=== PATIENT | female | born 2000 | race Caucasian/White ===

== ENCOUNTER → 2024-04-28 08:30 | Outpatient (REF) | payer OTHER, SELFPAY ==
--- NOTE | 2024-04-28 08:41 | ECG_ITS ---
Test Reason : ROUTINE Blood Pressure : */* mmHG Vent. Rate : 54 BPM Atrial Rate : 54 BPM P-R Int : 192 ms QRS Dur : 94 ms QT Int : 452 ms P-R-T Axes : -16 67 42 degrees QTcB Int : 428 ms Sinus bradycardia Otherwise normal ECG No previous ECGs available Referred By: Ailyn Jackson Electronically Signed By: RICHARD BABB MD
[2024-04-28 09:01] LABS: MANUAL DIFF FLAG NO
[2024-04-28 09:40] LABS: Basophils Absolute Auto 0.1 X10*3/uL (0.0-0.2); Basophils Percent Auto 0.8 % (0-2); Eosinophils Absolute Auto 0.1 X10*3/uL (0.0-0.4); Eosinophils Percent Auto 1.5 % (0-4); Hemoglobin 13.6 g/dl (12.0-16.0); Imm Gran Abs Auto 0.02 X10*3/uL (0.00-0.03); Imm Gran Pct Auto 0.3 % (0.0-0.4); Lymphocytes Absolute Auto 1.8 X10*3/uL (1.2-4.9); Lymphocytes Percent Auto 27.8 % (20-40); Mean Corpuscular Hemoglobin 25.9 pg (27.0-33.0); Mean Corpuscular Volume 76.2 fL (80.0-98.0); Mean Platelet Volume 10.3 fL (9.4-12.3); Monocytes Absolute Auto 0.5 X10*3/uL (0.1-1.2); Monocytes Percent Auto 7.7 % (2-11); Neutrophils Percent Auto 61.9 % (45-73); Platelet Count 483 X10*3/uL (160-400); Red Blood Count 5.25 X10*6/uL (4.20-5.50); Red Cell Distribution Width 12.4 % (11.0-16.0); White Blood Count 6.5 X10*3/uL (4.8-10.8)
[2024-04-28 10:07] LABS: Estimated Average Glucose 105 mg/dL; Hemoglobin A1C 118.4929 umol/L; Hemoglobin A1c % 5.3 % (<6.0); Total Hemoglobin (HGBA1C) 3488.5384 umol/L
[2024-04-28 10:13] LABS: Alanine Aminotransferase 16 U/L (0-31); Albumin Level 4.4 g/dL (3.5-5.0); Alkaline Phosphatase 68 U/L (39-117); Anion Gap 11 (12-20); Aspartate Amino Transferase 20 U/L (5-31); Bilirubin Total 0.7 mg/dL (0.0-1.0); Blood Urea Nitrogen 5 mg/dL (9-16); Calcium 9.6 mg/dL (8.4-10.2); Carbon Dioxide 28 mmol/L (22-29); Chloride 104 mmol/L (96-108); Cholesterol 151 mg/dL (<200); Estimated Glomerular Filt Rate > 60; Glucose Fasting 87 mg/dL (60-99); HDL Cholesterol 53 mg/dL (>40); Iron 88 mcg/dL (30-160); LDL Cholesterol Calculated 81 mg/dL (<100); Magnesium 2.2 mg/dL (1.6-2.6); Percent Iron Saturation 30 % (15-50); Potassium 3.8 mmol/L (3.3-5.1); Sodium 139 mmol/L (135-145); Total Iron Binding Capacity 295 mcg/dL (228-428); Total Protein 7.7 g/dL (6.5-8.0); Triglycerides 87 mg/dL (<150); Unsaturated Iron Binding 207 ug/dL
[2024-04-28 10:24] LABS: Free T4 (Free Thyroxine) 1.17 ng/dL (0.71-1.85); HCG Quantitative < 2 mIU/mL; Thyroid Stimulating Hormone 1.05 uIU/mL (0.32-4.0)
[2024-04-28 10:25] LABS: Erythrocyte Sedimentation Rate 4 MM/HR (0-20)
[2024-04-28 10:36] LABS: Folate 4.2 ng/mL (> or = 4.0); Vitamin B12 488 pg/mL (200-900)
== END ==
LOC: HO.CARD 08:30
PROVIDERS: Visit Provider Psychiatry & Neurology Psychiatry
DX: Z13.1 Encounter for screening for diabetes mellitus (principal); Z13.6 Encounter for screening for cardiovascular disorders; F39 Unspecified mood [affective] disorder
CPT/HCPCS: 36415; 80053; 80061; 82306; 82607; 82746; 83036; 83540; 83735; 84439; 84443; 84702; 85025; 85652; 93005

== ENCOUNTER → 2024-04-28 08:41 | Outpatient (BNV) | payer OTHER, SELFPAY | PROVIDERS: Visit Provider Internal Medicine Cardiovascular Disease | DX: R00.1 Bradycardia, unspecified (principal) | CPT/HCPCS: 93010 ==

== ENCOUNTER → 2024-04-28 11:30 | Outpatient (BNV) | payer OTHER, SELFPAY | PROVIDERS: Visit Provider Psychiatry & Neurology Psychiatry | DX: F33.2 Major depressive disorder, recurrent severe without psychotic features (principal); F89 Unspecified disorder of psychological development; F43.9 Reaction to severe stress, unspecified; F80.0 Phonological disorder; F64.9 Gender identity disorder, unspecified | CPT/HCPCS: 90792; 99213 ==

== ENCOUNTER 2024-05-06 10:45 | Outpatient (RCR) | payer OTHER, SELFPAY ==
[2024-04-15 11:27] VITALS: BP 116/72; PULSE 68; TEMP 37; BMI 34.1
--- NOTE | 2024-04-15 14:04 | PC.ADMIT ---
Patient is a 23 year old trans gendered female who uses she/her pronouns who was referred to [facility] by [facility] providers. Patient lives with her parents. Patient has a history of MDD, verbal dyspraxia, autism spectrum, Gender dysphoria, and SIMI. Patient struggling with severe anxiety with depression and intermittent passive SI. Patient is unemployed. She stated, I have been out of work for 2 years. 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 They let me go in June 2023 . Patient identified supports being her best friend who is like his sister and her mother. Patient is alert and oriented x4. Calm and cooperative. She presented with depressed mood and anxious affect. She denied SI, no HI. Reports having thoughts that she does not want to be here. Denied this currently and denied any plans or intention to kill herself. She was given a copy of her safety plan if needed. She denied any substance issues. Patient stated some of her goals while in [facility] is to get on medications that will help her feel better to help with her depression and anxiety symptoms. Medications reconciled with patient and patient's pharmacy.
--- NOTE | 2024-04-21 15:39 | PHP/IOPCOSI ---
Pt's case has been opened and reviewed in treatment team.
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
--- NOTE | 2024-04-22 09:38 | PC.NURSE ---
Patient stated she fell at home and twisted her R ankle. Reports the area is painful when bearing weight on the foot, no swelling or bruising seen. Patient has full range of motion to the area. Patient does not have a PCP at this time. I advised Maame to go to Urgent Care to f/u. Maame stated there is an Urgent Care Center in [place] that she has gone to before. I gave Maame an Ice compress to place on the area.
--- NOTE | 2024-04-25 15:06 | PC.NURSE ---
Patient reports she went to Urgent Care last Thursday d/t R foot pain. She is wearing a medical stabilizing boot. Reports she was dx with sprained R foot.
--- NOTE | 2024-04-26 13:52 | PC.NURSE ---
Maame stated that her primary care doctor left [facility] and she does not have a PCP at this time. We called [facility] to make an appointment with a new PCP last week and we were told that Maame was assigned a male doctor. Maame stated she does not want to see a male doctor. We were told that there is a new provider in the practice named Grisel and to call back the week of April 25 to schedule an appointment as the schedule should be out by then. Maame and Svetlana called the office today 04/26/24 and we were told that they were not able to schedule an appointment today however someone would be reaching out to Maame in a day or 2 to schedule a new PCP appointment.
--- NOTE | 2024-04-27 09:40 | PC.NURSE ---
New PCP appointment at [facility]. [address] [facility]. on Tuesday May 09, 2023 at 8:00am. Office # [phone].
--- NOTE | 2024-04-28 13:12 | HO.PHP ---
This engineering writer reached out to [facility] to change medication management apt referral from July 2024 to a sooner date. Maame has a scheduled apt with Kriss Mcintosh NP on June 08 at 9am via telehealth in the interim.
--- NOTE | 2024-04-28 22:14 | P.PNPSP_ITS ---
Subjective Subjective Date of Service: 04/28/24 Reason For Visit: anxiety Interim History: Spoke with patient who was slated for discharge today. She tells me she has been struggling with her mood, anxiety and feeling overwhelmed at times. I'm kind of scared. Today was a bad day. I still get lots of bad days . She intermittently has passive SI, no plan but says those kinds of thoughts of not wanting to be here come and go , but when they do happen she gets overwhelmed and scared she will get stuck in a bad place with my thoughts . She also says she is scared to leave the program now if she is still having passive SI. SHe also says she is scared because she hasn't started back on medications and does not have a community provider to follow-up with so wanted help to start them. She says she did picking tech the medication but has not started on them. She thought she had to wait to get the lab work done and then see me again before she was allowed to start medications. I suggest she could start back on them tonight/ tomorrow. She just got her lab work done this morning so results are still pending. Will plan to review tomorrow. Medication Compliance: Yes Side effects from medications: No Attending Groups: Yes Review of Systems Acute medical concerns: No Mental Status Exam Mental Status Exam Narrative: Alert, oriented, in no acute distress. Calm, cooperative, engaged. No psychomotor agitation or neurovegetative retardation. Eye contact maintained. Mood scared anxious, depressed, affect constricted. Speech impediment. Thought process linear, coherent. Thought content related to stressors, transient hopelessness and passive SI without intention or plan. Denies HI. No paranoia or delusional content elicited. No evidence of psychosis. Insight and judgment - fair but adequate. Diagnostics Vital Signs (24Hr): BMI result Body Mass Index 34.1 Assessment & Plan Assessment & Plan (1) MDD (major depressive disorder), recurrent severe, without psychosis: Status: Acute Code(s): F33.2 - Major depressive disorder, recurrent severe without psychotic features (2) Developmental disability: Status: Acute Code(s): F89 - Unspecified disorder of psychological development (3) Trauma and stressor-related disorder: Status: Acute Code(s): F43.9 - Reaction to severe stress, unspecified (4) Speech sound disorder: Status: Acute Code(s): F80.0 - Phonological disorder (5) Gender dysphoria: Status: Acute Code(s): F64.9 - Gender identity disorder, unspecified Plan start fluoxetine at 20 mg (previous dose 60 mg) hold clonidine for now start topiramate 25-50 mg qhs may continue hydroxyzine 25-50 mg qhs prn sleep continue other regular medications lab work results pending continue to monitor Patient educated on: diagnosis and medication risk/benefits Informed Consent: understands Reason for contiued partial hosp. stay Substantial Risk for: inability to function and med/psych decompensation Certification I certify that partial hospital treatment is medically necessary due to the symptoms and problems resulting from the patient's mental illness and the failure to treat the patient at the partial hospital level of care would likely result in the patient requiring inpatient psychiatric care which could not be prevented at a less intensive level of care. Total time managing care of this patient today __30__ minutes. Discharge Plan Discharge Attending provider: Ailyn Jackson Additional Instructions: New PCP appointment at [facility]. [address] [place] [address]. on Thursday May 09, 2024 at 8:00am. Office # [phone]. Med provider apt rescheduled for June 08, 2024 at 9:00am via telehealth with Kriss Mcintosh NP through [facility]. Medications: New topiramate 50 mg tablet 25 - 50 mg PO .QHS Qty: 20 0RF fluoxetine 20 mg capsule 20 mg PO DAILY Qty: 30 0RF hydroxyzine HCl 25 mg tablet See Rx Instructions .ROUTE .COMPLEX Qty: 30 0RF Rx Instructions: take 1/2 - 1 tablet BID prn anxiety; 1-2 tablets QHS prn sleep Continued Lupron Depot (3 month) 11.25 mg syringe kit 11.25 mg IM Q3M Rx Instructions: Last filled 11/18/23 estradiol valerate 20 mg/mL oil 4 mg IM QWEEK Rx Instructions: Last filled 11/17/23 90 day supply. No Action clonidine HCl 0.1 mg Tablet 0.1 mg PO BID PRN (Reason: Anxiety) Rx Instructions: Last filled 12/17/23. Stand Alone Forms: Patient Portal Discharge page Print Language: Greek
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
--- NOTE | 2024-05-06 10:29 | P.PNPSP_ITS ---
Subjective Subjective Date of Service: 05/06/24 Reason For Visit: anxiety Interim History: As per admission note on 04/21/2024: 23 year old transgender female with anxiety, mood, depression, passive SI, unspecified learning disorder, as well as history of lead poisoning, recurrent ear infections and partial hearing loss, who was referred by her therapist. She is noted to have speech impediment (rhotacism) as well as what I presume to be developmental/ intellectual disability. 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 Patient reports she has been struggling with depression, mood instability since coming off her previous medication regime 2 years ago. I used to have a wicked good psychiatrist back in 2021 and 2022. The medication I was on worked (well) for a long time... until she (the prescriber) left (the practice) . Since then, successive prescribers couldn't get my meds right or would be on/off medications due problems accessing care. She was started on a new regime of medications in early 2023, however did not find them particularly effective and ended up stopping everything but clonidine 2 months ago. I still struggle, my mood's up and down. I still take the clonidine because it helps a little with the anxiety . SHe found amitriptyline, fluoxetine, hydroxyzine, topiramate helpful in the past. Experiences transient SI intermittently, usually passive SI just thoughts but denies any current SI or HI. Reports a history of AH hearing a voice putting me down, it can happen out of the blue... I used to get bullied. Now it's not as bad . Chris [facility], , [place]. Last AH was 02/2024. Today: Overall reports some anxiety around discharging today. Reports lots of emotions going on, but overall feeling supported. Also feels positive that they can return to the partial hospital program in 1 month to further strengthen skills and supports. Reports benefiting from journaling, writing, asking questions and education. Has kept all the materials from groups and finds these helpful. Reports medications have help with anxiety and depression over the last 2 weeks. Will talk with primary care provider around weight loss medication. Regarding safety reports nighttime can be difficult when and nightmare could occur, wakes up with anxiety, crying and I am passive wish thoughts. Nothing active. When this does happen grounding herself, positive affirmation statements and scanning the room and naming out items helps ground her. Has follow-up appointments in place and enough medications until then. Will be returning home to live with her parents. Also aware of crisis supports and suicide prevention line if needed. Medication Compliance: Yes Side effects from medications: No Attending Groups: Yes Review of Systems Review of Systems Unremarkable Mental Status Exam Mental Status Exam Narrative: Pleasant. Engaged. Casual dress and presented. Fair hygiene. Is concrete. Some delayed time and responding, but appropriate responses when they do come. Some appropriate anxiety around discharging. No overt depression. Intermittent thoughts of , but nothing active. Is able to safety plan. No HI. No agitation or psychosis. Insight and judgment fair Diagnostics Vital Signs (24Hr): BMI result Body Mass Index 34.1 Assessment & Plan Assessment & Plan (1) MDD (major depressive disorder), recurrent severe, without psychosis: Status: Acute Code(s): F33.2 - Major depressive disorder, recurrent severe without psychotic features (2) Post traumatic stress disorder: Status: Acute Code(s): F43.10 - Post-traumatic stress disorder, unspecified Plan 04/21/24: restart fluoxetine at 20 mg qam (previous dose was 60 mg) restart topiramate 25-50 mg qhs restart hydroxyzine 25 mg PRN continue other regular medications - T elisha depot q 3mos, estrodiol IM q weekly will hold off restarting TCA until we check routine EKG and also oobserve if addition Routine lab work ordered as indicated EKG, routine for baseline QTc for medication considerations as indicated UDS as indicated MassPat reviewed Continue to monitor as per protocol 04/28/24: start fluoxetine at 20 mg (previous dose 60 mg) hold clonidine for now start topiramate 25-50 mg qhs may continue hydroxyzine 25-50 mg qhs prn sleep continue other regular medications Today: Stable for discharge. Continue current medication regimen. Has enough prescriptions until next follow-up appointments. Patient educated on: medication risk/benefits and therapeutic strategies Informed Consent: understands Reason for contiued partial hosp. stay Substantial Risk for: stable for discharge Certification I certify that partial hospital treatment is medically necessary due to the symptoms and problems resulting from the patient's mental illness and the failure to treat the patient at the partial hospital level of care would likely result in the patient requiring inpatient psychiatric care which could not be prevented at a less intensive level of care. Total time managing care of this patient today ____ minutes. Discharge Plan Discharge Attending provider: Ailyn Jackson Additional Instructions: New PCP appointment at [facility]. [address] [place] [address]. on Thursday May 09, 2024 at 8:00am. Office # [phone]. Med provider apt rescheduled for June 08, 2024 at 9:00am via telehealth with Kriss Mcintosh NP through [facility]. Medications: New topiramate 50 mg tablet 25 - 50 mg PO .QHS Qty: 20 0RF fluoxetine 20 mg capsule 20 mg PO DAILY Qty: 30 0RF hydroxyzine HCl 25 mg tablet See Rx Instructions .ROUTE .COMPLEX Qty: 30 0RF Rx Instructions: take 1/2 - 1 tablet BID prn anxiety; 1-2 tablets QHS prn sleep Continued Lupron Depot (3 month) 11.25 mg syringe kit 11.25 mg IM Q3M Rx Instructions: Last filled 11/18/23 estradiol valerate 20 mg/mL oil 4 mg IM QWEEK Rx Instructions: Last filled 11/17/23 90 day supply. No Action clonidine HCl 0.1 mg Tablet 0.1 mg PO BID PRN (Reason: Anxiety) Rx Instructions: Last filled 12/17/23. Stand Alone Forms: Patient Portal Discharge page Patient Education: Depression (DC) Print Language: Polish Telehealth Telehealth Telehealth Platform: Other (please specify) ([employer]) Location of provider rendering services: practice address Location of patient: other ([facility]) Patient Identification confirmed using: Name, : Yes Telehealth method: video Patient verbally consented to treatment: Yes Minutes spent on Phone/Video with Pt.: 15
== END 2024-05-06 23:59 | disposition home or self-care (01) ==
LOC: HO.PHPA 10:45
PROVIDERS: Visit Provider Psychiatry & Neurology Psychiatry
DX: F33.2 Major depressive disorder, recurrent severe without psychotic features (principal); F89 Unspecified disorder of psychological development; F43.10 Post-traumatic stress disorder, unspecified; F80.0 Phonological disorder; F64.9 Gender identity disorder, unspecified; Z79.899 Other long term (current) drug therapy
CPT/HCPCS: 90791; 90853